=== PATIENT | female | born 1950 | race Caucasian/White ===

== ENCOUNTER → 2016-09-14 | Outpatient (CLI) | payer MEDICARE, BC ==
--- NOTE | 2016-09-14 16:56 | NM ---
EXAMINATION TYPE: NM hepatobiliary w EF DATE OF EXAM: 09/14/2016 4:47 PM COMPARISON: CTA aorta December 03, 2015. HISTORY: Right upper quadrant pain per order. Abdominal pain with reflux and nausea and heartburn-lik e symptoms per patient. TECHNIQUE: After the intravenous administration of 5.37 mCi Tc 99m Mebrofenin hepatobiliary scintigra phy is performed. Immediate images post injection. FINDINGS: There is satisfactory initial accumulation of tracer by the liver. The gallbladder is visualized wit hin 20 minutes. The small bowel activity is noted within 50 minutes. At one hour 8 ounces of oral e nsure plus is given to mimic CCK and gallbladder ejection fraction is calculated at 86 %, not elevate d from the normal range. Therefore there is no scintigraphic evidence of cystic or common bile duct obstruction to suggest acute cholecystitis. IMPRESSION: Ejection fraction is 86%, some consider this abnormal or a hyperkinetic response.
== END | disposition home or self-care (01) ==
LOC: RADNMMAIN 14:48
PROVIDERS: ATTEND Family Medicine
DX: R10.11 Right upper quadrant pain (principal)
CPT/HCPCS: 78226; A9537

== ENCOUNTER → 2018-01-26 | Outpatient (CLI) | payer MEDICARE, BC ==
--- NOTE | 2018-01-28 08:31 | MM ---
Reason for exam: screening (asymptomatic). Last mammogram was performed 2 years and 9 months ago. History: Patient is postmenopausal. Physical Findings: A clinical breast exam by your physician is recommended on an annual basis and results should be correlated with mammographic findings. MG Screening Mammo w CAD Bilateral CC and MLO view(s) were taken. Prior study comparison: May 06, 2015, bilateral MG screening mammo w CAD. April 06, 2014, bilateral MG screening mammo w CAD. There are scattered fibroglandular densities. No significant changes when compared with prior studies. ASSESSMENT: Benign, BI-RAD 2 RECOMMENDATION: Routine screening mammogram of both breasts in 1 year.
== END | disposition home or self-care (01) ==
LOC: RADMAMWWP 07:35
PROVIDERS: ATTEND Family Medicine
DX: Z12.31 Encounter for screening mammogram for malignant neoplasm of breast (principal)
CPT/HCPCS: 77067

== ENCOUNTER → 2018-11-01 | Day surgery (SDC) | payer MEDICARE, BC ==
[2018-10-27 14:24] VITALS: BMI 30.7
[~2018-11-01] MED LIST: LACTATED RINGERS 1,000 ML IV SCH; LIDOCAINE 1% 20 ML VIAL (10MG/ML) FOR IV START INTRADERMA PRN; LIDOCAINE 1% INJ 10MG/ML (20 ML MDV) ONE; MIDAZOLAM 2 MG/2 ML VIAL ONE; PROPOFOL 10 MG/ML 20 ML VIAL IV ONE; fentaNYL (PF) 50 MCG/ML 2 ML AMP ONE
[2018-11-01 11:58] VITALS: TEMP 98.4
[2018-11-01 13:09] VITALS: RESP 17
--- NOTE | 2018-11-01 13:10 | P.PCN ---
Date of Procedure: 11/01/18 Procedure(s) Performed: Procedure: Esophagogastroduodenoscopy and biopsy. Preoperative diagnosis: Recurrent abdominal pains and vomiting and history of reflux. Postoperative diagnosis: 1. Mild gastritis but no obvious esophagitis, ulcers or complicated reflux disease. 2. Multiple biopsies obtained from the duodenum, antrum and esophagus. Preparation and sedation: Was provided by anesthesia. Brief clinical history: The patient is 68-year-old female who is scheduled for this evaluation because of reflux symptoms and recurrent episodes of abdominal pain and vomiting of around 3 years duration. She took PPI treatment for 5 or 6 months without finding much difference. Ultrasound of the abdomen did not reveal gallstones. This evaluation is to assess for conjugated reflux disease or other pathology. Procedure: With the patient on her left lateral decubitus position and after informed consent and adequate sedation, I passed a Olympus-GIF H190 video upper endoscope through the cricopharyngeus down the esophagus. The esophagus did not show any obvious esophagitis or complicated reflux disease. There was no obvious hiatal hernia. The stomach was then insufflated with air and inspected in detail including the retroflex view in the cardia. There was diffuse mottling and erythema most evident in the antrum and immediate prepyloric area with no ulcers or erosions. Pyloric channel did not show any ulcers. Duodenal bulb, post bulbar area and descending duodenum appeared within normal limits. Because of her symptoms, I obtained biopsies from the duodenum, antrum and esophagus then the endoscope was withdrawn. The patient tolerated the procedure well. Plan: The patient was reassured. Will await biopsy results. She will follow-up with you as planned and further plans can be made based on her course and biopsy results. I would be happy to see in the office if her symptoms persist.
[2018-11-01 13:26] VITALS: BP 129/75; PULSE 79
== END | disposition home or self-care (01) ==
LOC: ORWHC2ENDO 10:46
DX: K21.9 Gastro-esophageal reflux disease without esophagitis (principal); K29.50 Unspecified chronic gastritis without bleeding; I10 Essential (primary) hypertension; E07.9 Disorder of thyroid, unspecified; Z79.890 Hormone replacement therapy; Z79.899 Other long term (current) drug therapy
CPT/HCPCS: 88305; 43239; J2250; J2001; J3010; J2704

== ENCOUNTER → 2020-05-06 | Outpatient (CLI) | payer MEDICARE, BC ==
--- NOTE | 2020-05-07 07:19 | ECHOF ---
Referral Reason:[id number] cardiac murmur MEASUREMENTS -------- HEIGHT: 165.1 cm WEIGHT: 86.2 kg BP: RVIDd: 2.7 cm (< 3.3) IVSd: 1.5 cm (0.6 - 1.1) LVIDd: 4.4 cm (3.9 - 5.3) LVPWd: 1.5 cm (0.6 - 1.1) IVSs: 1.7 cm LVIDs: 3.0 cm LVPWs: 1.3 cm LA Diam: 5.4 cm (2.7 - 3.8) LAESV Index (A-L): 46.76 ml/m Ao Diam: 3.0 cm (2.0 - 3.7) MV EXCURSION: 14.991 mm (> 18.000) MV EF SLOPE: 33 mm/s (70 - 150) EPSS: 0.3 cm MV E Aneesh: 1.06 m/s MV DecT: 289 ms MV A Aneesh: 1.23 m/s MV E/A Ratio: 0.86 AV maxP.38 mmHg AV meanP.05 mmHg AR PHT: 393 ms RAP: 5.00 mmHg RVSP: 40.39 mmHg FINDINGS -------- Sinus rhythm. This was a technically adequate study. The left ventricular size is normal. There is moderate concentric left ventricular hypertrophy. O verall left ventricular systolic function is normal with, an EF between 55 - 60 %. The right ventricle is normal in size. LA is severely dilated >40 ml/m2 The right atrial size is normal. There is mild to moderate aortic valve sclerosis. There is [id number] aortic regurgitation. There is mild aortic stenosis present. Peak/mean gradient across the Aortic Valve is 31.38mmHg / 1 6.05mmHg. Moderate mitral annular calcification present. Mild mitral regurgitation is present. The tricuspid valve appears structurally normal. Mild tricuspid regurgitation present. There is m ild pulmonary hypertension. The right ventricular systolic pressure, as measured by Doppler, is 40. 39mmHg. There is no pulmonic regurgitation present. The aortic root size is normal. There is no pericardial effusion. CONCLUSIONS -------- 1. There is moderate concentric left ventricular hypertrophy. 2. Overall left ventricular systolic function is normal with, an EF between 55 - 60 %. 3. LA is severely dilated >40 ml/m2 4. There is mild to moderate aortic valve sclerosis. 5. There is dbsi-qu-ahmggmoe aortic regurgitation. 6. There is mild aortic stenosis present. 7. Peak/mean gradient across the Aortic Valve is 31.38mmHg / 16.05mmHg. 8. Moderate mitral annular calcification present. 9. Mild mitral regurgitation is present. 10. Mild tricuspid regurgitation present. 11. There is mild pulmonary hypertension. 12. There is no pericardial effusion. TILE DESIGNER: Vangie Rico RDCS
== END | disposition home or self-care (01) ==
LOC: RADECHMAIN 13:12
PROVIDERS: ATTEND Family Medicine
DX: I08.3 Combined rheumatic disorders of mitral, aortic and tricuspid valves (principal); I27.20 Pulmonary hypertension, unspecified
CPT/HCPCS: 93306

== ENCOUNTER → 2022-03-20 | Outpatient (CLI) | payer MEDICARE, BC ==
--- NOTE | 2022-03-20 12:18 | BD ---
EXAMINATION TYPE: Axial Bone Density DATE OF EXAM: 03/20/2022 COMPARISON: FIRST DEXA STUDY AT [facility] CLINICAL HISTORY: 71 years year old Female. ICD-10 CODE: M85.89 Disorder of bone Height: 63.5 Weight: 195 FRAX RISK QUESTIONS: NOTHING TO NOTE HERE RISK FACTORS HISTORY OF: Postmenopausal woman: YES, AT AGE 51 Hyperparathyroidism: NO Adrenal Insufficiency: NO MEDICATIONS: Thyroid Medications: YES, SYNTHROID PRODUCT FOR ABOUT 20 YRS Additional Medications: BP MEDS, REFLUX MEDS, STATIN FOR HEART, VIT D Additional History: HYPERTENSION, HEART DISEASE, REFLUX, THYROID EXAM MEASUREMENTS: Bone mineral densitometry was performed using the [employer] System. Bone mineral density as measured about the Lumbar spine is: ----- L1-L4(G/cm2): 1.125 T Score Values are as follows: ----- L1: -0.7 ----- L2: -0.7 ----- L3: -0.8 ----- L4: 0.2 ----- L1-L4: -0.5 Bone mineral density FIRST DEXA AT [facility] Bone mineral density about the R hip (g/cm2): 0.832 Bone mineral density about the L hip (g/cm2): 0.884 T Score values are as follows: -----R Neck: -1.6 -----L Neck: -1.0 -----R Total: -1.4 -----L Total: -1.0 Bone mineral density FIRST DEXA AT [facility] FRAX%s: The graph provided illustrates a 10.3% chance for a major osteoporotic fx and a 1.8% chance f or the hips probability for fx in 10 years time. IMPRESSION: Osteopenia (T Score between -2.5 and -1). There is slightly increased risk of fracture and the patient may be considered for treatment. Re-Screen 2-5 years. NOTE: T-SCORE=SD OF THE YOUNG ADULT MEAN.
--- NOTE | 2022-03-20 16:09 | MM ---
Reason for Exam: Screening (asymptomatic). Last mammogram was performed 4 year(s) and 2 month(s) ago. Patient History: Menarche at age 12. First Full-Term at age 16. Postmenopausal. Patient has history of breast feeding. Risk Values: Salima 5 year model risk: 1.3%. NCI Lifetime model risk: 3.3%. Prior Study Comparison: 04/06/2014 Bilateral Screening Mammogram, [facility]. 05/06/2015 Bilateral Screening Mammogram, [facility]. 01/26/2018 Bilateral Screening Mammogram, [facility]. Tissue Density: There are scattered fibroglandular densities. Findings: Analyzed By CAD. Focal asymmetry 9-10 o'clock right breast anterior to middle depth appears more defined from prior exams. Benign vascular calcifications on the left. Otherwise, no significant change. Overall Assessment: Incomplete: need additional imaging evaluation, BI-RAD 0 Management: Special View Mammogram of the right breast. To include spot 3-D CC, spot 3-D MLO, and 3-D ML views. Targeted right breast ultrasound if any persisting abnormality. [facility] will attempt to contact patient to return for supplemental views and ultrasound if indicated. Electronically signed and approved by: Jenny Tolbert M.D. Radiologist
== END | disposition home or self-care (01) ==
LOC: RADMAMWWP 06:55
PROVIDERS: ATTEND Family Medicine
DX: Z12.31 Encounter for screening mammogram for malignant neoplasm of breast (principal); M85.89 Other specified disorders of bone density and structure, multiple sites; Z78.0 Asymptomatic menopausal state
CPT/HCPCS: 77067; 77080

== ENCOUNTER → 2022-03-25 | Outpatient (CLI) | payer MEDICARE, BC ==
--- NOTE | 2022-03-25 14:59 | MM ---
Reason for Exam: Additional evaluation requested from abnormal screening. Last screening mammogram was performed less than 1 month ago. Patient History: Menarche at age 12. First Full-Term at age 16. Postmenopausal. Patient has history of breast feeding. Risk Values: Salima 5 year model risk: 1.3%. NCI Lifetime model risk: 3.3%. Prior Study Comparison: 11/05/2005 Screening Mammogram, [facility]. 04/02/2011 Bilateral Screening Mammogram, [facility]. 04/06/2014 Bilateral Screening Mammogram, [facility]. 05/06/2015 Bilateral Screening Mammogram, [facility]. 01/26/2018 Bilateral Screening Mammogram, [facility]. 03/20/2022 Bilateral MG screening mammo w CAD, [facility]. Tissue Density: Right: There are scattered fibroglandular densities. Findings: Analyzed By CAD. Persistent 1 cm oval circumscribed high density nodule in the right anterior middle depth upper outer breast. Overall Assessment: Incomplete: need additional imaging evaluation, BI-RAD 0 Management: Diagnostic Breast Ultrasound of the right breast. A clinical breast exam by your physician is recommended on an annual basis and results should be correlated with mammographic findings. This exam should not preclude additional follow-up of suspicious palpable abnormalities. Results were given to the patient verbally at the time of exam. Electronically signed and approved by: Philippe Lindo D.O.
--- NOTE | 2022-03-25 14:59 | MM ---
Reason for Exam: Additional evaluation requested from abnormal screening. Last screening mammogram was performed less than 1 month ago. Patient History: Menarche at age 12. First Full-Term at age 16. Postmenopausal. Patient has history of breast feeding. Risk Values: Salima 5 year model risk: 1.3%. NCI Lifetime model risk: 3.3%. Prior Study Comparison: 11/05/2005 Screening Mammogram, [facility]. 04/02/2011 Bilateral Screening Mammogram, [facility]. 04/06/2014 Bilateral Screening Mammogram, [facility]. 05/06/2015 Bilateral Screening Mammogram, [facility]. 01/26/2018 Bilateral Screening Mammogram, [facility]. 03/20/2022 Bilateral MG screening mammo w CAD, [facility]. Tissue Density: Right: There are scattered fibroglandular densities. Findings: Analyzed By CAD. Persistent 1 cm oval circumscribed high density nodule in the right anterior middle depth upper outer breast. Overall Assessment: Incomplete: need additional imaging evaluation, BI-RAD 0 Management: Diagnostic Breast Ultrasound of the right breast. A clinical breast exam by your physician is recommended on an annual basis and results should be correlated with mammographic findings. This exam should not preclude additional follow-up of suspicious palpable abnormalities. Results were given to the patient verbally at the time of exam. Electronically signed and approved by: Philippe Lindo D.O.
--- NOTE | 2022-03-25 15:15 | USB ---
Reason for Exam: Additional evaluation requested from abnormal screening. Patient History: Menarche at age 12. First Full-Term at age 16. Postmenopausal. Patient has history of breast feeding. Risk Values: Salima 5 year model risk: 1.3%. NCI Lifetime model risk: 3.3%. Prior Study Comparison: 05/06/2015 Bilateral Screening Mammogram, [facility]. 01/26/2018 Bilateral Screening Mammogram, [facility]. 03/20/2022 Bilateral MG screening mammo w CAD, [facility]. Findings: The upper outer quadrant of the right breast, the axilla of the right breast and the retroareolar of the right breast were scanned. Targeted ultrasound of the right breast 9-12 o'clock was performed. Additional evaluation of the nipple and right axilla. There is a prominent duct at 10:00 5 cm from the nipple with a oval circumscribed mass within the duct without internal color flow measuring 0.6 x 0.3 x 0.4 cm. There appears to be a few echogenic foci within this lesion. This likely represents a papilloma. Overall Assessment: Suspicious, BI-RAD 4 Management: Ultrasound Core Biopsy of the right breast. A clinical breast exam by your physician is recommended on an annual basis and results should be correlated with mammographic findings. This exam should not preclude additional follow-up of suspicious palpable abnormalities. ??Results were given to the patient verbally at the time of exam. Electronically signed and approved by: Philippe Lindo D.O.
--- NOTE | 2022-03-25 15:15 | USB ---
Reason for Exam: Additional evaluation requested from abnormal screening. Patient History: Menarche at age 12. First Full-Term at age 16. Postmenopausal. Patient has history of breast feeding. Risk Values: Salima 5 year model risk: 1.3%. NCI Lifetime model risk: 3.3%. Prior Study Comparison: 05/06/2015 Bilateral Screening Mammogram, [facility]. 01/26/2018 Bilateral Screening Mammogram, [facility]. 03/20/2022 Bilateral MG screening mammo w CAD, [facility]. Findings: The upper outer quadrant of the right breast, the axilla of the right breast and the retroareolar of the right breast were scanned. Targeted ultrasound of the right breast 9-12 o'clock was performed. Additional evaluation of the nipple and right axilla. There is a prominent duct at 10:00 5 cm from the nipple with a oval circumscribed mass within the duct without internal color flow measuring 0.6 x 0.3 x 0.4 cm. There appears to be a few echogenic foci within this lesion. This likely represents a papilloma. Overall Assessment: Suspicious, BI-RAD 4 Management: Ultrasound Core Biopsy of the right breast. A clinical breast exam by your physician is recommended on an annual basis and results should be correlated with mammographic findings. This exam should not preclude additional follow-up of suspicious palpable abnormalities. ??Results were given to the patient verbally at the time of exam. Electronically signed and approved by: Philippe Lindo D.O.
== END | disposition home or self-care (01) ==
LOC: RADMAMWWP 14:21
PROVIDERS: ATTEND Family Medicine
DX: R92.8 Other abnormal and inconclusive findings on diagnostic imaging of breast (principal); Z78.0 Asymptomatic menopausal state
CPT/HCPCS: 77065; 76642; G0279; 77061

== ENCOUNTER → 2022-04-08 | Day surgery (SDC) | payer MEDICARE, BC ==
--- NOTE | 2022-04-13 14:29 | MM ---
Reason for Exam: Post Procedure Mammogram. Last screening mammogram was performed less than 1 month ago. Patient History: Menarche at age 12. First Full-Term at age 16. Postmenopausal. Patient has history of breast feeding. Risk Values: Salima 5 year model risk: 1.3%. NCI Lifetime model risk: 3.3%. Prior Study Comparison: 01/26/2018 Bilateral Screening Mammogram, [facility]. 03/20/2022 Bilateral MG screening mammo w CAD, [facility]. 03/25/2022 Right MG 3D work up w/cad RT, [facility]. Tissue Density: Right: There are scattered fibroglandular densities. Pathology Description: Location: 10 o'clock, upper inner quadrant. Marker Left Behind. Needle Type: Mammotome Cores: 4 Gauge: 13 The procedure of ultrasound guided core biopsy was explained to the patient. Benefits, alternatives, and risks were discussed. An informed consent was then obtained. The patient was placed in supine positioning for imaging and for the procedure. Preprocedure ultrasound redemonstrates prominent tubular structure are intact with heterogeneous 6 x 3 mm hypoechoic area at 10:00 position right breast. The overlying skin was prepped and draped in usual sterile fashion. Lidocaine is used as anesthetic into the skin and subcutaneous tissue. Lidocaine with epinephrine is used as anesthetic into the deeper tissue up to area of concern in the right breast. Under ultrasound guidance, a vacuum assisted biopsy gun device was used to obtain 2 core samples. Following this, a biopsy clip was left in lesion. The patient tolerated the procedure well without any immediate complication. The patient was kept in the radiology department for short stay after the procedure and then discharged home in stable condition. Postprocedure mammogram: The patient was transferred to mammography for physician ordered post procedure mammogram for clip placement verification. Post procedure mammogram shows successful deployment of clip felt to correspond to area of original concern on mammogram. Impression: Successful, uncomplicated ultrasound guided core biopsy of area of concern in the right breast, full pathology results to follow. Intermediate index of suspicion noted at time of procedure. Possible papilloma. Pathology Results: Result: Benign, Fibrocystic change. RIGHT BREAST, TEN O'CLOCK, NEEDLE CORE BIOPSY: Fibrocystic changes including cysts, fibrosis and apocrine metaplasia. Intraluminal calcium oxalate crystals are identified. Overall Assessment: Benign Assessment: MG diagnostic mammo RT wo CAD - Right: Benign, BI-RAD 2. Management: Diagnostic Breast Ultrasound of the right breast in 6 months. Electronically signed and approved by: Rafa Collins M.D.
== END ==
LOC: RADUSWWP 12:46
PROVIDERS: ATTEND Surgery
DX: N60.81 Other benign mammary dysplasias of right breast (principal); N60.31 Fibrosclerosis of right breast; N60.01 Solitary cyst of right breast; R92.8 Other abnormal and inconclusive findings on diagnostic imaging of breast
CPT/HCPCS: 88305; 77065; 19083; A4648

== ENCOUNTER 2022-06-05 06:54 | Emergency (ER) | payer MEDICARE, BC ==
[2022-06-05 07:06] VITALS: RESP 18
[2022-06-05] MEDS ORDERED: SODIUM CHLORIDE 0.9% 1,000 ML IV STA (07:25)
[2022-06-05] MEDS ORDERED: ONDANSETRON 4 MG/2 ML VIAL IVP STA (07:25)
[2022-06-05] MEDS ORDERED: KETOROLAC 15 MG/ML 1 ML VIAL IVP STA (07:25)
[2022-06-05] MEDS ORDERED: ACETAMINOPHEN IV (For NPO) 1,000 MG in EMPTY BAG 1 BAG IVPB STA (07:26)
[2022-06-05] MEDS ORDERED: FAMOTIDINE 20 MG/2 ML VIAL IV STA (07:26)
--- NOTE | 2022-06-05 07:28 | ED ---
General Adult HPI - General Chief complaint: Abdominal Pain Stated complaint: galbladder issues Time Seen by Provider: 06/05/22 07:08 Source: patient, family, RN notes reviewed Mode of arrival: ambulatory - History of Present Illness Initial comments: Patient is a pleasant 72-year-old female presenting to the emergency department with concerns with abdominal pain. Patient has had similar symptoms previously associated with gallbladder problems. Patient does feel chilled. Onset of symptoms was 7 PM yesterday. He should does have nausea and vomiting and loose stools. Discomfort is right side of the abdomen and somewhat the back as well. - Related Data Home Medications Medication Instructions Recorded Confirmed Levothyroxine Sodium [Synthroid] 112 mcg PO DAILY 12/03/15 04/02/22 Cholecalciferol (Vitamin D3) 2,000 unit PO DAILY 10/27/18 04/02/22 [Vitamin D3] Metoprolol Succinate (ER) [Toprol 50 mg PO DAILY 10/27/18 04/02/22 Xl] Losartan [Cozaar] 1 each PO DAILY 04/02/22 04/02/22 Lovastatin [Mevacor] 10 mg PO HS 04/02/22 04/02/22 Omeprazole 20 mg PO DAILY 04/02/22 04/02/22 Allergies Allergy/AdvReac Type Severity Reaction Status Date / Time No Known Allergies Allergy Verified 06/05/22 07:03 Review of Systems ROS Statement: Those systems with pertinent positive or pertinent negative responses have been documented in the HPI. ROS Other: All systems not noted in ROS Statement are negative. 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 History of Any Multi-Drug Resistant Organisms: None Reported Past Surgical History: Tubal Ligation Past Anesthesia/Blood Transfusion Reactions: No Reported Reaction Past Psychological History: No Psychological Hx Reported Smoking Status: Never smoker Past Alcohol Use History: Occasional Past Drug Use History: None Reported - Past Family History Father Family Medical History: Cancer Additional Family Medical History / Comment(s): lung Daughter(s) Family Medical History: Cancer Additional Family Medical History / Comment(s): blood ca Sister(s) Family Medical History: Deep Vein Thrombosis (DVT) General Exam Limitations: no limitations General appearance: alert, in no apparent distress Head exam: Present: normocephalic Eye exam: Present: normal appearance Respiratory exam: Present: normal lung sounds bilaterally Cardiovascular Exam: Present: regular rate, normal rhythm GI/Abdominal exam: Present: soft, normal bowel sounds. Absent: distended, tenderness, guarding, rebound, rigid, pulsatile mass Extremities exam: Present: normal inspection Back exam: Present: normal inspection. Absent: CVA tenderness (R) Neurological exam: Present: alert Psychiatric exam: Present: normal affect, normal mood Skin exam: Present: normal color Course Vital Signs 06/05/22 06/05/22 07:04 10:06 Temperature 98 F 98.1 F Pulse Rate 101 H 99 Respiratory 18 18 Rate Blood Pressure 196/72 115/55 O2 Sat by Pulse 91 L Oximetry - Reevaluation(s) Reevaluation #1: 06/05/22 09:16 Patient did have temperature of 99.9 measured by myself 06/05/22 10:34 Patient was reexamined and updated. Attempted transfer to [facility] without success. Attempted transfer to [place] without success. We are currently trying [facility]. 06/05/22 10:[address] Jade at [facility] who was unable to accept transfer secondary to being full. 06/05/22 11:54 We did also attempt to contact [place] and [place] as well as [place]. We did contact 11 hospitals prior to [facility] excepting transfer. Case was discussed with Eliane as well as Keturah as well as Dr. Contreras. Patient will go to the emergency department. Medical Decision Making - Lab Data Result diagrams: 06/05/22 08:00 06/05/22 08:00 Lab Results 06/05/22 06/05/22 06/05/22 Range/Units 08:00 08:00 08:00 WBC 20.2 H (3.8-10.6) k/uL RBC 4.39 (3.80-5.40) m/uL Hgb 14.4 (11.4-16.0) gm/dL Hct 40.3 (34.0-46.0) % MCV 91.9 (80.0-100.0) fL MCH 32.9 (25.0-35.0) pg MCHC 35.8 (31.0-37.0) g/dL RDW 17.7 H (11.5-15.5) % Plt Count 238 (150-450) k/uL MPV 8.3 Neutrophils % 94 % Lymphocytes % 1 % Monocytes % 3 % Eosinophils % 1 % Basophils % 0 % Neutrophils # 19.0 H (1.3-7.7) k/uL Lymphocytes # 0.3 L (1.0-4.8) k/uL Monocytes # 0.6 (0-1.0) k/uL Eosinophils # 0.1 (0-0.7) k/uL Basophils # 0.1 (0-0.2) k/uL Hyperchromasia Slight Poikilocytosis Marked Anisocytosis Slight PT 10.8 (9.0-12.0) sec INR 1.0 (<1.2) APTT 20.4 L (22.0-30.0) sec Sodium (137-145) mmol/L Potassium (3.5-5.1) mmol/L Chloride (98-107) mmol/L Carbon Dioxide (22-30) mmol/L Anion Gap mmol/L BUN (7-17) mg/dL Creatinine (0.52-1.04) mg/dL Est GFR (CKD-EPI)AfAm (>60 ml/min/1.73 sqM) Est GFR (CKD-EPI)NonAf (>60 ml/min/1.73 sqM) Glucose (74-99) mg/dL Plasma Lactic Acid Yovanny (0.7-2.0) mmol/L Calcium (8.4-10.2) mg/dL Total Bilirubin (0.2-1.3) mg/dL AST (14-36) U/L ALT (4-34) U/L Alkaline Phosphatase (38-126) U/L Total Protein (6.3-8.2) g/dL Albumin (3.5-5.0) g/dL Amylase (30-110) U/L Lipase (23-300) U/L Urine Color Dark Yellow Urine Appearance Clear (Clear) Urine pH 6.5 (5.0-8.0) Ur Specific Ralston 1.050 H (1.001-1.035) Urine Protein Trace H (Negative) Urine Glucose (UA) Negative (Negative) Urine Ketones Negative (Negative) Urine Blood Negative (Negative) Urine Nitrite Negative (Negative) Urine Bilirubin 2+ H (Negative) Urine Urobilinogen 3.0 (<2.0) mg/dL Ur Leukocyte Esterase Negative (Negative) Coronavirus (PCR) (Not Detectd) 06/05/22 06/05/22 06/05/22 Range/Units 08:00 08:00 10:00 WBC (3.8-10.6) k/uL RBC (3.80-5.40) m/uL Hgb (11.4-16.0) gm/dL Hct (34.0-46.0) % MCV (80.0-100.0) fL MCH (25.0-35.0) pg MCHC (31.0-37.0) g/dL RDW (11.5-15.5) % Plt Count (150-450) k/uL MPV Neutrophils % % Lymphocytes % % Monocytes % % Eosinophils % % Basophils % % Neutrophils # (1.3-7.7) k/uL Lymphocytes # (1.0-4.8) k/uL Monocytes # (0-1.0) k/uL Eosinophils # (0-0.7) k/uL Basophils # (0-0.2) k/uL Hyperchromasia Poikilocytosis Anisocytosis PT (9.0-12.0) sec INR (<1.2) APTT (22.0-30.0) sec Sodium 141 (137-145) mmol/L Potassium 3.7 (3.5-5.1) mmol/L Chloride 104 (98-107) mmol/L Carbon Dioxide 25 (22-30) mmol/L Anion Gap 12 mmol/L BUN 8 (7-17) mg/dL Creatinine 0.69 (0.52-1.04) mg/dL Est GFR (CKD-EPI)AfAm >90 (>60 ml/min/1.73 sqM) Est GFR (CKD-EPI)NonAf 87 (>60 ml/min/1.73 sqM) Glucose 120 H (74-99) mg/dL Plasma Lactic Acid Yovanny 2.5 H* (0.7-2.0) mmol/L Calcium 9.0 (8.4-10.2) mg/dL Total Bilirubin 8.1 H (0.2-1.3) mg/dL AST 244 H (14-36) U/L ALT 103 H (4-34) U/L Alkaline Phosphatase 147 H (38-126) U/L Total Protein 9.0 H (6.3-8.2) g/dL Albumin 4.6 (3.5-5.0) g/dL Amylase 82 (30-110) U/L Lipase 432 H (23-300) U/L Urine Color Urine Appearance (Clear) Urine pH (5.0-8.0) Ur Specific Ralston (1.001-1.035) Urine Protein (Negative) Urine Glucose (UA) (Negative) Urine Ketones (Negative) Urine Blood (Negative) Urine Nitrite (Negative) Urine Bilirubin (Negative) Urine Urobilinogen (<2.0) mg/dL Ur Leukocyte Esterase (Negative) Coronavirus (PCR) Not Detected (Not Detectd) - Radiology Data Radiology results: report reviewed (Computed tomography scan abdomen pelvis shows hydropic gallbladder with cholelithiasis. Mild wall thickening. Biliary ductal dilation. Patchy groundglass changes of the lungs. Nodular focus anterior wall of the bladder.) Critical Care Time Critical Care Time: Yes Total Critical Care Time: 80 Disposition Clinical Impression: Cholecystitis, Sepsis Disposition: OTHER INSTITUTION NOT DEFINED Condition: Serious Is patient prescribed a controlled substance at d/c from ED?: No Referrals: Gordon Wylie DO [Primary Care Provider] - 1-2 days Time of Disposition: 11:55 - Out of Hospital Transfer - Req. Specs Out of Hospital Transfer - Requested Specifics: Other Emergency Center
[2022-06-05 08:15] LABS: Anisocytosis Slight; Basophils # (A) 0.1 k/uL (0-0.2); Basophils % (A) 0 %; Eosinophils # (A) 0.1 k/uL (0-0.7); Eosinophils % (A) 1 %; HCT 40.3 % (34.0-46.0); HGB 14.4 gm/dL (11.4-16.0); Hyperchromasia Slight; Lymphocytes # (A) 0.3 k/uL (1.0-4.8); Lymphocytes % (A) 1 %; MCH 32.9 pg (25.0-35.0); MCHC 35.8 g/dL (31.0-37.0); MCV 91.9 fL (80.0-100.0); Mean Platelet Volume 8.3; Monocytes # (A) 0.6 k/uL (0-1.0); Monocytes % (A) 3 %; Neutrophils % (A) 94 %; Platelet Count 238 k/uL (150-450); Poikilocytosis Marked; RBC 4.39 m/uL (3.80-5.40); RDW 17.7 % (11.5-15.5); WBC 20.2 k/uL (3.8-10.6)
[2022-06-05 08:27] LABS: ALT 103 U/L (4-34); AST 244 U/L (14-36); African American GFR (CKD) >90 (>60 ml/min/1.73 sqM); Albumin 4.6 g/dL (3.5-5.0); Alkaline Phosphatase 147 U/L (38-126); Amylase 82 U/L (30-110); Anion Gap 12 mmol/L; Blood Urea Nitrogen 8 mg/dL (7-17); Carbon Dioxide 25 mmol/L (22-30); Chloride 104 mmol/L (98-107); Glucose 120 mg/dL (74-99); Lipase 432 U/L (23-300); Non-African American GFR(CKD) 87 (>60 ml/min/1.73 sqM); Potassium 3.7 mmol/L (3.5-5.1); Sodium 141 mmol/L (137-145); Total Bilirubin 8.1 mg/dL (0.2-1.3)
[2022-06-05 08:47] LABS: Prothrombin Time 10.8 sec (9.0-12.0)
--- NOTE | 2022-06-05 09:09 | CT ---
EXAMINATION TYPE: CT abdomen pelvis w con DATE OF EXAM: 06/05/2022 COMPARISON: 12/03/2015 HISTORY: 72-year-old female with abdominal pain TECHNIQUE: Contiguous axial scanning of the abdomen and pelvis following administration of 100 ml Iso parul 300 IV contrast. Delayed images through the kidneys and coronal/sagittal reconstructions perform ed. CT DLP: 1273.5 mGycm Automated exposure control for dose reduction was used. FINDINGS: Heart borderline enlarged. Dense mitral annular calcifications. Groundglass changes in the lower lung s. Correlate to exclude atypical pneumonia is. Underlying mild emphysematous change. No pleural effus ion. Liver enlarged measuring 23.0 cm. Spleen is enlarged at 15.1 cm. Fragment hydropic gallbladder measuring 5.6 cm wide. Small layering gallstones. Suggestion of early m ild wall thickening. Bile duct is dilated at 1.2 cm with additional intrahepatic biliary ductal dilatation. Adrenal glands, right kidney, and pancreas within normal limits. Tiny 7 mm cortical cyst lateral left kidney. No dilated small bowel or free air. There is trace abdominal pelvic ascites fluid. Normal appendix. No significant stool burden. No pericolic inflammatory change. Tiny fatty umbilical hernia. There is a larger ventral epigastric midline abdominal wall hernia conta ining omental fat and some ascites fluid measuring 7.9 cm wide through an abdominal wall defect measu ring 1.9 cm wide. Bladder urine distended. There is an enhancing nodular focus measuring 7 mm on the anterior wall of t he bladder. Early urothelial lesion not excluded at this time. Uterus anteverted. Small bilateral ova david. Mild pelvic free fluid. No pelvic lymphadenopathy seen. Bones: Moderately advanced degenerative disc disease L5-S1. Hypertrophic facet arthropathy mid to low er lumbar spine. Baastrup's disease. Disc bulge and ligamentum flavum thickening L4-L5 may contribute to a moderate focal spinal canal stenosis. IMPRESSION: 1. HYDROPIC GALLBLADDER WITH CHOLELITHIASIS. THERE MAY BE MILD EARLY WALL THICKENING OF THE GALLBLADD ER. CORRELATE TO EXCLUDE EARLY ACUTE CHOLECYSTITIS. 2. ALTERNATIVELY, GIVEN INTRAHEPATIC AND EXTRAHEPATIC BILIARY DUCTAL DILATATION (BILE DUCT MEASURING 1.2 CM), BILIARY OBSTRUCTION WOULD BE AN ALTERNATIVE CONSIDERATION. CORRELATE WITH ALKALINE PHOSPHATA SE AND BILIRUBIN LEVELS. 3. HEPATOMEGALY AT 23 CM. SPLENOMEGALY AT 15.1 CM. 4. MILD ABDOMINOPELVIC ASCITES WHICH IS ABNORMAL. 5. PATCHY GROUNDGLASS CHANGES IN THE LOWER LUNGS. CORRELATE FOR POSSIBLE ETIOLOGIES INCLUDING INTERST ITIAL PNEUMONITIS, DEVELOPING PULMONARY EDEMA, AND ATYPICAL PNEUMONIAS. 6. A 7 MM NODULAR ENHANCING FOCUS ALONG THE ANTERIOR WALL OF THE BLADDER. EARLY UROTHELIAL LESION/CAR CINOMA NOT EXCLUDED. CORRELATE WITH DIRECT VISUALIZATION AND URINE CYTOLOGY. 7. VENTRAL EPIGASTRIC MIDLINE ABDOMINAL WALL HERNIA CONTAINING OMENTAL FAT AND ASCITES FLUID MEASURIN G 7.9 CM WIDE.
[2022-06-05] MEDS ORDERED: PIPERACILLIN-TAZOBACTAM 3.375 GM in SODIUM CHLORIDE 0.9% 100 ML IVPB STA (09:15)
[2022-06-05 09:52] LABS: Partial Thromboplastin Time 20.4 sec (22.0-30.0)
[2022-06-05 10:13] VITALS: BP 115/55; TEMP 98.1
[2022-06-05 11:43] LABS: Appearance,Urine Clear (Clear); Bilirubin,Urine 2+ (Negative); Blood,Urine Negative (Negative); Color,Urine Dark Yellow; Glucose,Urine (UA) Negative (Negative); Ketones,Urine Negative (Negative); Leukocyte Esterase,Urine Negative (Negative); Nitrite,Urine Negative (Negative); PH, Urine 6.5 (5.0-8.0); Protein,Urine Trace (Negative)
[2022-06-05 12:27] VITALS: PULSE 78
[2022-06-06] MEDS ORDERED: PIPERACILLIN-TAZOBACTAM 3.375 GM in SODIUM CHLORIDE 0.9% 100 ML IVPB SCH ×2
== END 2022-06-05 12:33 | disposition other institution (70) ==
LOC: EC 06:54
DX: K81.9 Cholecystitis, unspecified (principal); A41.9 Sepsis, unspecified organism; K43.9 Ventral hernia without obstruction or gangrene; R18.8 Other ascites; I10 Essential (primary) hypertension; E07.9 Disorder of thyroid, unspecified; Z79.890 Hormone replacement therapy; Z79.899 Other long term (current) drug therapy; Z20.822 Contact with and (suspected) exposure to COVID-19
CPT/HCPCS: 36415; 80053; 82150; 83605; 83690; 85025; 85610; 85730; 81003; 87040; 87635; 74177; 99291; 99292; 96365; 96375 ×4; 96361 ×4; J2543; J2405; J0131; J1885; Q9967

== ENCOUNTER 2024-10-09 05:51 | Day surgery (SDC) | payer MEDICARE, BC ==
[2024-10-06 09:29] VITALS: BMI 29.8
[2024-10-09] MEDS ORDERED: ASPIRIN 325 MG TAB PO STA (06:04)
[2024-10-09] MEDS ORDERED: ALPRAZolam 0.25 MG TAB PO PRN (06:04)
[2024-10-09] MEDS ORDERED: ALPRAZolam 0.5 MG TAB PO PRN (06:04)
[2024-10-09] MEDS ORDERED: ATORVASTATIN 80 MG TAB PO STA (06:04)
[2024-10-09] MEDS ORDERED: NITROGLYCERIN SL TABS 0.4 MG TAB SUBLINGUAL PRN (06:04)
[2024-10-09] MEDS: IV FLUID CONTINUATION 1,000 ML IV ONE ×2 (06:27→11:00)
[2024-10-09 06:28] VITALS: RESP 18; TEMP 98.2
[2024-10-09 06:51] LABS: Basophils % (A) 1.3 %; Eosinophils # (A) 0.33 10*3/uL (0.04-0.35); Eosinophils % (A) 4.3 %; HCT 39.5 % (37.2-46.3); HGB 13.9 g/dL (12.0-15.0); Lymphocytes # (A) 1.36 10*3/uL (0.90-5.00); Lymphocytes % (A) 17.8 %; MCHC 35.2 g/dL (32.0-37.0); MCV 93.8 fL (80.0-97.0); Mean Platelet Volume 10.3 fL (9.5-12.2); Monocytes # (A) 0.73 10*3/uL (0.20-1.00); Monocytes % (A) 9.6 %; Neutrophils # (A) 5.07 10*3/uL (1.80-7.70); Neutrophils % (A) 66.6 %; Platelet Count 247 10*3/uL (140-440); RBC 4.21 10*6/uL (4.10-5.20); RDW 17.1 % (11.5-14.5); WBC 7.62 10*3/uL (4.50-10.00)
[2024-10-09 06:57] LABS: African American GFR (CKD) >90 (>60 ml/min/1.73 sqM); Anion Gap 11 mmol/L; Blood Urea Nitrogen 13 mg/dL (7-17); Calcium 9.8 mg/dL (8.4-10.2); Carbon Dioxide 30 mmol/L (22-30); Chloride 101 mmol/L (98-107); Glucose 86 mg/dL (74-99); Non-African American GFR(CKD) 86 (>60 ml/min/1.73 sqM); Potassium 3.7 mmol/L (3.5-5.1); Sodium 142 mmol/L (137-145)
[2024-10-09] MEDS: SODIUM CHLORIDE 0.9% 1,000 ML in EMPTY BAG 1 BAG IV SCH (07:44)
[2024-10-09] MEDS: BENZOCAINE SPRAY 1 EACH MM ONE (07:47)
[2024-10-09] MEDS: fentaNYL (PF) 50 MCG/1 ML VIAL IVP ONE (07:47)
[2024-10-09] MEDS: MIDAZOLAM 2 MG/2 ML VIAL IVP ONE ×2 (07:47→07:55)
[2024-10-09] MEDS: LIDOCAINE 1% INJ 10MG/ML (20 ML MDV) SQ ONE (08:13)
[2024-10-09] MEDS: VERAPAMIL SYRINGE (5 MG/10 ML) INTRAARTER ONE (08:15)
[2024-10-09] MEDS: HEPARIN SODIUM 1,000 UN/ML (10ML VL) IVP ONE (08:37)
[2024-10-09] MEDS: IOPAMIDOL-370 100ML BTL INJ ONE (08:41)
[2024-10-09] MEDS: HEPARIN SODIUM,PORCINE 10,000 UNIT in SODIUM CHLORIDE 0.9% 1,000 ML IRRIGATION PRN (08:42)
[2024-10-09] MEDS: HEPARIN SODIUM,PORCINE (1 ML) 2,500 UNIT in SODIUM CHLORIDE 0.9% 250 ML IRRIGATION PRN (08:42)
[2024-10-09 08:44] LABS: O2 Sat Blood Gas 75.6 %
[2024-10-09 08:48] LABS: O2 Sat Blood Gas 76.3 %
[2024-10-09 08:50] LABS: O2 Sat Blood Gas 76.6 %
[2024-10-09 08:51] LABS: O2 Sat Blood Gas 96.9 %
--- NOTE | 2024-10-09 10:55 | P.TEE ---
Date of Procedure: 10/09/24 Description of Procedure(s): Procedure performed: 1. Transesophageal Echocardiogram with color flow doppler, pulsed wave doppler and continuous wave doppler, (CPT 12415, +[id number], +[id number]) 2. Moderate conscious sedation. Sedation time 18 mins. (CPT 81991) Indications: Moderate to severe aortic stenosis Consent: I have discussed the risks, benefits and alternative therapies for the above-mentioned procedure. The patient has indicated understanding and acceptance of the risks of the procedure. Signed consent was obtained and was placed in the paper chart. Procedural Steps: Timeout was performed in usual fashion. Patient's heart rate, blood pressure, oxygen saturation and ECG were monitored. Benzocaine was sprayed liberally in the back of the throat. Bite block was placed between the jaw. 3 mg of Versed and 75 mcg of Fentanyl were administered intravenously. After achieving appropriate moderate conscious sedation, IZABELA probe was advanced without difficulty and without any immediate complications to the esophagus. IZABELA study was performed with color flow doppler, pulsed wave doppler and continuous wave doppler. The probe was then removed. Patient tolerated the procedure well. Patient was transferred to the post procedure area in stable and satisfactory condition. Throughout the procedure patient's heart rate, blood pressure, oxygen saturation and ECG were monitored. Total sedation time 18 mins. Complications: none FINDINGS Left Atrium: Mild left atrial dilatation. No evidence of mass or thrombus seen. Normal forward flow in pulmonic valve with preserved S and D ratio. Left Atrial Appendage: No evidence of thrombus or mass seen in HORACIO Inter atrial septum: Intact inter-atrial septum with no evidence of atrial septal defect or patent foramen ovale. Left Ventricle: Normal global LV size and systolic function. Mild to moderate concentric left ventricular hypertrophy. Right Atrium: Normal overall RA size Right Ventricle: Normal global RV size and systolic function Aortic Valve: Calcified trileaflet aortic valve. Moderate aortic stenosis with mean gradient of 33 mmHg, peak gradient of 53 mmHg, mild eccentric aortic regurgitation. VTI ratio 0.23. Mitral Valve: Moderate mitral calcification with involves posterior mitral leaflet base. No clinically significant stenosis or regurgitation. Aortic valve area 2.7 cm by planimetry. Pulmonic Valve: Not well visualized. Tricuspid Valve: Mild tricuspid regurgitation. Ascending aorta, Aortic root and Aortic arch: Normal size aortic root and ascending aorta. Aortic root measured 3.7 cm. Descending aorta: Mild intimal thickening. No evidence of large atheroma or bulky calcification CONCLUSION: Moderate to severe calcified aortic stenosis with mean gradient 33 mmHg, VTI ratio 0.23 Mild eccentric aortic regurgitation Moderate mitral annular calcification Preserved LV size and systolic function with moderate concentric LVH Mild left atrial dilatation Stanley Kenny MD, RPVI, FACC Thank you for allowing [facility] to participate in this patient's care. Feel free to reach out in case of any followup questions.
--- NOTE | 2024-10-09 11:08 | P.CARDCATH ---
Date of Procedure: 10/09/24 Description of Procedure: DIAGNOSTIC CORONARY ANGIOGRAPHY, right heart catheterization and LEFT HEART CATH REPORT PROCEDURES PERFORMED: Left heart catheterization Right heart catheterization Selective coronary angiography Moderate conscious sedation 49 mins [Ultrasound assisted] Right radial access Ultrasound assisted right basilar vein access INDICATION: Abnormal Lexiscan nuclear stress test with anterolateral wall reversible perfusion defect. Aortic stenosis. BRIEF HPI: 74-year-old female was evaluated in cardiology office with symptoms of exertional shortness of breath. Her echocardiogram showed moderate aortic regurgitation with moderate aortic stenosis with evidence of pulmonary hypertension. She also had a stress test which was abnormal showing reversible perfusion defect in anterolateral wall. For this she was scheduled for a IZABELA and a left and right heart catheterization procedure. CONSENT: I have explained the procedural steps of above-mentioned procedures in layman's terms to the patient. I discussed the risks (including but not limited to stroke, emergent vascular or cardiac surgery or ), benefits and alternative therapies for the above-mentioned procedure. I discussed the risks of sedation/analgesia and blood product administration (if indicated). The patient has indicated understanding and acceptance of these risks. Conscious Sedation: Patient's ECG, heart rate, blood pressure, pulse oximetry were monitored throughout the duration of procedure under my direct supervision. 3 mg Versed and 75 mcg Fentanyl were used for induction of moderate conscious sedation. Total duration of moderate concious sedation 29 minutes. PROCEDURAL DETAILS: Patient was prepped and draped in sterile fashion. 1% lidocaine was infiltrated over the right radial artery. Right radial access was obtained via modified seldinger technique. [Ultrasound was used for radial access]. Ultrasound was utilized to identify the right basilar vein. 1% lidocaine was infiltrated over the basilar vein. Using ultrasound guidance and modified Seldinger technique right basilar vein access was obtained in the 6 Algerian sheath was secured and flushed. Through the sheath Rigby-Yenifer catheter was advanced to the wedge position and sequential pressures and blood samples were collected from wedge, pulmonary artery, RV, and RA. Thermodilution study was performed. Dinora cardiac output was obtained. Medications: 5mg of verapamil was administed in the radial sheet. 4500 Units of Heparin was administed once the catheter reached the aortic root Wires and Catheter used: J wire was advanced under fluroscopy to get to aortic root. 5 cymro JR 4 diagnostic catheter was utilized obtain left ventricular pressure and pressure gradint across aortic valve. 5 cymro JR 4 diagnostic catheter was used to selectively engage the right coronary ostium. 5 cymro JL 3.5 diagnostic catheter was utilized to selectively engage the left coronary ostium. Angiographic images were reviewed in detail. Catheter and wire were removed. Radial sheet was flushed. The right radial sheath was removed and a TR band was placed. Patent hemostasis was achieved. The patient tolerated the procedure well. Patient was transported back to the post catheterization holding area in stable condition. TECHNICAL DETAILS Total contrast used: Isovue [60 ml] Complications: [none] Estimated Blood loss: less than 15 ml HEMODYNAMICS: Aortic Pressure: 125/57 mmHg mmHg. LV pressure: 160/1 mmHg. LVEDP 12 mmHg. Aortic valve assessment Peak to peak aortic valve gradient of 35 mmHg Mean aortic valve gradient 30 mmHg Aortic valve area by Hakki equation 1.2 cm Right heart pressures Mean PCW: 12 mmHg. A wave 14 mg, V wave 18 mmHg PA: 45/16 mmHg, mean PA: 28 mmHg RV: 45/2 mmHg, RVEDP: 6 mmHg Mean RA: 6 mmHg Cardiac outputs Heart rate 76, BSA 1.94, hemoglobin 11.9 RA sat: 76% RV sat: 77% PA sat: 77% Arterial sat: 97% Thermodilution cardiac output 6.49 L/min Thermodilution cardiac index 3.34 L/min/m Dinora cardiac output 7.9 L/min Dinora cardiac index 4.1 L/min/m SELECTIVE CORONARY ARTERIOGRAPHY: LEFT MAIN: The left main is short and large caliber vessel. It bifurcates into the LAD and circumflex. Left main appears angiographically normal. LEFT ANTERIOR DESCENDING CORONARY ARTERY: LAD is a large caliber vessel which wraps around to the apex. Proximal mid and distal LAD appears angiographically patent. LAD gives rise to 3 small diagonal branch which appears angiographically patent. LEFT CIRCUMFLEX CORONARY ARTERY: LCx is codominant vessel. It is a large- caliber vessel. LCx appears graphically patent. Mid LCx gives rise to a large OM branch which appears angiographically patent. Distal LCx gives rise to PL branches which appears angiographically patent. RIGHT CORONARY ARTERY: Codominant vessel, moderate caliber. Proximal mid and distal RCA appears angiographically patent with mild calcific luminal irregularities. Distal RCA continues to give PDA which appears angiographically patent. IMPRESSION: Angiographically patent coronary arteries with mild diffuse calcification Calcific moderate aortic stenosis Normal LVEDP Normal pulmonary capillary wedge pressures Normal cardiac output and cardiac index WNL right-sided pressures PLAN: Aggressive risk factor modification per most recent ACC/AHA guidelines. 125 cc fluids for 4 hours Discharge home in 4 hours Follow-up with Dr. Kirk for further recommendations in next 1 to 2 weeks Performing Physician Stanley Kenny MD, FACC, RPVI
[2024-10-09 12:08] VITALS: BP 156/70; PULSE 72
== END 2024-10-09 12:31 | disposition home or self-care (01) ==
LOC: CATHCVL 05:51
PROVIDERS: ATTEND Student in an Organized Health Care Education/Training Program
DX: I35.2 Nonrheumatic aortic (valve) stenosis with insufficiency (principal); I27.20 Pulmonary hypertension, unspecified
CPT/HCPCS: 93312; 93320; 93325; 80048; 85018; 82810; 85025; 93596; C1769 ×2; C1894; C1751; J2250; J1644 ×3; J2003; Q9967; J3010